=== PATIENT | female | born 1940 | race Caucasian/White ===

== ENCOUNTER 2017-01-29 11:28 | Outpatient (CLI) | payer MEDICARE ==
--- NOTE | 2017-01-29 13:44 | Mammography Report ---
Screening mammogram: Breast cancer with lumpectomy and radiation. Routine views are compared to an outside exam on December 11, 2014 as well as right breast spot compression imaging at our facility. There is focal thickening just posterior and above the right areola. The remainder the breast pattern on the right is fatty replaced and unremarkable. There is surgical scarring in the central portion of the left breast with posterior calcification. The remainder the breast pattern is also generally fatty replaced. There are surgical clips in the axilla. These findings are all unchanged from prior examinations. CAD used. Impression: Stable breast pattern. Recommendation: Annual mammogram followup. BI-RADS CATEGORY: 2 = Benign ACR BI-RADS MAMMOGRAPHIC CODES: 0 = Needs additional imaging evaluation; 1 = Negative; 2 = Benign; 3 = Probably benign; 4 = Suspicious; 5 = Malignant; 6 = Known biopsy-proven malignancy COMMENT: 1. Dense breast tissue, i.e., adenosis, fibrocystic changes, etc., may obscure an underlying neoplasm. 2. Approximately 10% of cancers are not detected with mammography. 3. A negative mammography report should not delay biopsy if a clinically suspicious mass is present.
== END 2017-01-29 11:29 | disposition home or self-care (01) ==
LOC: MAMMO 11:28
DX: Z12.31 Encounter for screening mammogram for malignant neoplasm of breast (principal); E03.9 Hypothyroidism, unspecified; J18.9 Pneumonia, unspecified organism; F17.200 Nicotine dependence, unspecified, uncomplicated; Z98.890 Other specified postprocedural states; Z80.3 Family history of malignant neoplasm of breast
CPT/HCPCS: 77067; G0202

== ENCOUNTER 2017-10-12 10:48 | Outpatient (CLI) | payer MEDICARE ==
--- NOTE | 2017-10-13 13:19 | Mammography Report ---
BONE DEXA:10/12/17 11:00:00 CLINICAL: Postmenopausal and history of breast cancer. COMPARISON: 12/10/04 TECHNIQUE: Two site bone DEXA performed on an Hologic scanner. FINDINGS: The average BMD of the lumbar spine L1-L4 is 0.801g/cm squared with a T-score =-2.2 and a Z score of +0.2. This compares to 0.739 g/cm squared on the last exam and represents a +8.4% change in BMD. The average BMD of the left hip is 0.900g/cm squared with a T-score =-0.3 and a Z score of +1.4.This compares to 0.832g/cm squared on the last exam and represents a +8.4% change in BMD. The left femoral neck BMD is 0.713g/cm squared with a T score of -1.2 and Z score of +0.7. IMPRESSION: WHO classification: Osteopenia with average fracture risk based on both spine and left hip measurements. A significant improvement in both spine and left hip BMD compared to baseline. The FRAX 10 year fracture probability for a major osteoporotic fracture is 5.9%. The FRAX 10 year fracture probability for hip fracture is 1.0%. Note: FRAX version 3.01. Fracture probability calculated for an untreated patient. Fracture probability may be lower if the patient has received treatment. RECOMMENDATION: Clinical correlation and routine screening. DEFINITIONS: BMD = Bone Mineral Density T-score = BMD related to mean peak bone mass of young adult (mean expressed in Standard Deviation) Z-score = Age matched BMD expressed in SD World Health Organization (WHO) Diagnostic Criteria Normal T-score > -1 SD Osteopenia T-score between -1 and -2.4 SD Osteoporosis T-score -2.5 SD or below NOTE: BMD is not the only risk factor for fracture; also consider factors such as the patient's age, risk of falling, previous osteoporotic fracture, family history of osteoporotic fractures, current smoker, and low body weight. All treatment decisions require clinical judgment and consideration of individual patient factors, including patient preferences, comorbidities, previous drug use and wrist factors not captured in the FRAX model (e.g. frailty, falls, vitamin D deficiency, increased bone turnover, interval significant decline in BMD). Z-scores are not calculated if >80 years of age.
== END 2017-10-12 10:49 | disposition home or self-care (01) ==
LOC: MAMMO 10:48
DX: M85.88 Other specified disorders of bone density and structure, other site (principal); Z78.0 Asymptomatic menopausal state; Z85.3 Personal history of malignant neoplasm of breast
CPT/HCPCS: 77080